=== PATIENT | male | born 1945 | race Caucasian/White ===

== ENCOUNTER 2016-05-24 14:00 | Emergency (ER) | payer OTHER, MEDICARE ==
[~2016-05-24] VITALS: Ht 175.3 cm; Wt 88.5 kg
[~2016-05-24 14:00] MED LIST: ATORVASTATIN CA20 MG PO; CIALIS5 MG PO; CLOPIDOGREL75 MG PO; CO-Q-10 200 MG-1 SGL PO; FISH OIL CONCEN1 SGL PO; PROTONIX 40MG T40 MG PO; VITAMIN C500 M3 PO
--- NOTE | 2016-05-24 16:06 | ED CARDIAC/CP/PALPITATIONS ---
History of Present Illness General Chief Complaint: Palpitations Stated Complaint: PALPITATIONS,SOB Source: patient, old records Exam Limitations: no limitations Vital Signs & Intake/Output Vital Signs & Intake/Output Vital Signs Date Time Temp Pulse Resp B/P Pulse O2 O2 Flow FiO2 Ox Delivery Rate 05/24 1657 98.6 78 18 148/87 96 Room Air 05/24 1412 97.9 83 20 151/92 99 Room Air Allergies Coded Allergies: NO KNOWN ALLERGIES (02/27/14) NKDA PER ANTIBIOTIC ORDER SHEET OF 02/27/14 ([facility]) Reconcile Medications Ascorbic Acid (Vitamin C) (Unknown Strength) TAB (Unknown Dose) PO DAILY SUPPLEMENT (Reported) Atorvastatin Calcium (Lipitor) 20 MG TAB 1 TAB PO DAILY CHOLESTEROL (Reported ) CLOPIDOGREL BISULFATE (Clopidogrel) 75 MG TAB 1 TAB PO DAILY BLOOD THINNER ( Reported) Coenzyme Q10/Vitamin E (Co-Q-10 200 MG-1 Iu) (Unknown Strength) SGL (Unknown Dose) PO DAILY SUPPLEMENT (Reported) OMEGA-3 FATTY ACIDS (Fish Oil Concentrate) 1 SGL SGL 1 SGL PO DAILY SUPPLEMENT (Reported) Venlafaxine HCl (Venlafaxine HCl ER) (Unknown Strength) CAP.ER.24H (Unknown Dose) UNKNOWN (Reported) Triage Note: PALPITATIONS 3-4 WEEKS AGO SO HE WENT TO HIS PMD WHO STOPPED PROTONIX. STATES IT CALMED DOWN BUT STARTED AGAIN SO HE WAS PUT ON A MONITOR WHICH HASN'T BEEN READ YET. STATES TODAY IT WAS SO BAD HE COULDN'T WALK Triage Nurses Notes Reviewed? yes Onset: Gradual Duration: week(s): (4), intermittent Timing: recent history Quality/Severity: mild, moderate Radiation: no radiation Activities at Onset: none Prior Chest Pain/Card Workup: recent holter monitor Nitro Today/Relief: no nitro taken today Aspirin Today: no aspirin today Associated Symptoms: shortness of breath HPI: This is a 71-year-old male with history of CVA currently on Plavix presents to emergency room complaining of intermittent episodes of bradycardia and feeling flushed in his face for the past 1 month. The patient states that the reason he came in today is because he had an episode that lasted for 30 seconds which is the longest it has ever occurred. His states she has witnessed several of these episodes and he becomes red in the face when the episodes occur. He denies tachycardia, or palpitations and states it feels as though his heart slows down. He reports to associated feeling short of breath during the episode. There is been no recent cough fever chills and he denies any symptoms at this time. The episodes come on randomly and there is no association with exertion. The patient was seen by his primary care physician on May 02 at which time he had an unremarkable workup performed and wore a 24 hour Holter monitor 4 days ago however does not know the results.no Family history of irregular heartbeat. There is no associated dizziness lightheadedness. The patient is seen by communications and signals supervisor Dr. VEGA whom he saw once last year for a well check (BARRY FRANCES) Past History Travel History Traveled to [place] past 21 day No Medical History Any Pertinent Medical History? 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 No (BARRY FRANCES) Review of Systems Review of Systems Constitutional: Reports: see HPI. All Other Systems: Reviewed and Negative Comments Review of systems: See HPI, All other systems negative. Constitutional, no chills no fever, no malaise HEENT: No visual changes no sore throat no congestion Cardiovascular: No chest pain , palpitation Skin, no rashes, no change in skin Respiratory: No dyspnea no cough no sputum GI: No nausea no vomiting, no diarrhea, no bloating/constipation : No dysuria No hematuria Muscle skeletal: No joint pain, no joint swelling, no back pain, no neck pain, Neurologic: No numbness no headache Psych: No stress Heme/endocrine: No bruising no bleeding immuno: no lymphadenopathy (BARRY FRANCES) Physical Exam Physical Exam General Appearance: well developed/nourished, alert, awake Cardiovascular: regular rate/rhythm Comments: Well-developed well-nourished person in no acute distress HEENT: Normal EENT exam; PERRL, EOMI. HEAD is atraumatic. moist mucous membranes. Neck: Supple, no lymphadenopathy, normal range of motion, NO palpable thyromegaly Back: Nontender, no CVA tenderness. Full range of motion Cardiovascular: Regular rate and rhythms no murmurs rubs Respiratory: Chest nontender.There were no bony deformities, no asymmetry. No respiratory distress. Patient speaking in full complete sentences. Breath sounds clear to auscultation bilaterally: NO W/R/R Abdomen: Soft, nontender nondistended, no appreciable organomegaly. Normal bowel sounds. No rebound/guarding, Extremity: No edema, full range of motion of extremities Neuro: Alert oriented x3, motor sensory normal, There were no obvious focal neurologic abnormalities. Skin: No appreciable rash on exposed skin, skin is warm and dry. Psych: Mood and affect is normal, memory and judgment is normal. Core Measures ACS in differential dx? No Severe Sepsis Present: No Septic Shock Present: No (ULYSSES GORDON,BARRY) Progress Differential Diagnosis: AMI, aortic dissection, atrial fibrillation, CHF/pulm edema, costochondritis, hyperventilation, musculoskeletal pain, myocarditis, pancreatitis, pericarditis, pneumonia, pneumothorax, PSVT, pulmonary embolism, PVCs/PACs, unstable angina, V-fib/V-Tach Plan of Care: Orders Procedure Date/time Status THYROID STIMULATING HORMONE 05/24 1558 Complete TROPONIN LEVEL 05/24 1558 Complete COMPREHENSIVE METABOLIC PANEL 05/24 1558 Complete CBC WITHOUT DIFFERENTIAL 05/24 1558 Complete EKG 05/24 1400 Active Laboratory Tests 05/24/16 1615: Anion Gap 8, Estimated GFR > 60, BUN/Creatinine Ratio 18.6, Glucose 94, Calcium 9.9, Total Bilirubin 0.9, AST 25, ALT 38, Alkaline Phosphatase 76, Troponin I < 0.01, Total Protein 7.5, Albumin 4.4, Globulin 3.1, Albumin/Globulin Ratio 1.4, TSH 2.270, CBC w Diff NO MAN DIFF REQ, RBC 5.38, MCV 90.3, MCH 29.8, RDW 13.7, MPV 8.7, Gran % 73.7, Lymphocytes % 17.4 L, Monocytes % 7.3, Eosinophils % 1.0, Basophils % 0.6, Absolute Granulocytes 5.5, Absolute Lymphocytes 1.3, Absolute Monocytes 0.5, Absolute Eosinophils 0.1, Absolute Basophils 0, PUBS MCHC 33.0 Labs ordered patient denies any symptoms at this time. Case discussed with Dr. Thompson Repeat evaluation patient states that he has not had any further episodes of his symptoms while here, he is been normal sinus on the monitor without arrhythmia. I discussed with him need for close follow-up with his communications and signals supervisor Dr. VEGA this week, to return if the symptoms persist or redevelop or he has any other concerns answered all his questions he feels comfortable this plan (BARRY FRANCES) Diagnostic Imaging: Viewed by Me: Radiology Read. Discussed w/RAD: Radiology Read. Radiology Impression: PATIENT: JES RIVAS PRESENT AGE: 71 PATIENT ACCOUNT NO: [id number] : 47 LOCATION: [facility] ORDERING PHYSICIAN: BARRY GORDON SERVICE DATE: 05/24/16 EXAM TYPE: RAD - XRY-PORTABLE CHEST XRAY EXAMINATION: XR PORTABLE CHEST CLINICAL INFORMATION: Palpitations. COMPARISON: The 07/08/2015 TECHNIQUE: Portable AP view of the chest was obtained. FINDINGS: No significant abnormality is noted involving the heart, lungs, mediastinum, bony thorax or soft tissues. IMPRESSION : No active chest disease. DICTATED BY: ARUN BOO MD DATE/TIME DICTATED:1653 DISH CARRIER:TIP DATE/TIME TRANSCRIBED:05/24/161653 CONFIDENTIAL, DO NOT COPY WITHOUT APPROPRIATE AUTHORIZATION. <Electronically signed in Other Vendor System> SIGNED BY: ARUN BOO MD 05/24/161657 Initial ED EKG: normal intervals, normal p-waves, normal QRS complex, normal sinus rhythm (80) Prior EKG: unchanged (06/2015) Rhythm Strip: normal sinus rhythm (BARRY FRANCES) Departure Departure Time of Disposition: 1738 Disposition: HOME OR SELF CARE Condition: Stable Clinical Impression Primary Impression: Palpitations Referrals: SILVIA REBOLLAR,MICHELLE ASHLEY MD,DEON (PCP/Family) Additional Instructions: follow up with your pmd as well as communications and signals supervisor dr vega on Thursday, return with any concerns Departure Forms: Customer Survey General Discharge Information (BARRY FRANCES) PA/WATER SERVICE SUPERVISOR Co-Sign Statement Statement: ED Attending supervision documentation- [x] I saw and evaluated the patient. I have also reviewed all the pertinent lab results and diagnostic results. I agree with the findings and the plan of care as documented in the PA's/WATER SERVICE SUPERVISOR's documentation. [x] I have reviewed the ED Record and agree with the PA's/WATER SERVICE SUPERVISOR's documentation. [] Additions or exceptions (if any) to the PAs/WATER SERVICE SUPERVISOR's note and plan are summarized below: [] (LUCIA REBOLLAR,LEENA) Critical Care Note Critical Care Note Critical Care Time: non-applicable (BARRY FRANCES)
[2016-05-24 16:20] LABS: ABSOLUTE BASOPHIL COUNT 0 /CUMM (0.0-0.2); ABSOLUTE EOSINOPHIL COUNT 0.1 /CUMM (0.0-0.7); ABSOLUTE GRANULOCYTE CT 5.5 /CUMM (1.4-6.5); ABSOLUTE LYMPH COUNT 1.3 /CUMM (1.2-3.4); ABSOLUTE MONOCYTE COUNT 0.5 /CUMM (0.10-0.60); BASOPHIL % 0.6 % (0.0-2.0); GRANULOCYTE % 73.7 % (42.2-75.2); HEMATOCRIT 48.6 % (42-52); MEAN CORPUSCULAR HGB 29.8 PG (27.0-31.0); MEAN CORPUSCULAR VOLUME 90.3 FL (80.0-94.0); MEAN PLATELET VOLUME 8.7 FL (7.4-10.4); PLATELET COUNT 228 /CUMM (130-400); RBC DISTRIBUTION WIDTH 13.7 % (11.5-14.5); RED BLOOD CELL CT 5.38 /CUMM (4.70-6.10); WHITE BLOOD CELL COUNT 7.5 /CUMM (4.8-10.8)
[2016-05-24 16:57] VITALS: BP 148/87
--- NOTE | 2016-05-24 16:58 | RADIOLOGY REPORT ---
EXAMINATION: XR PORTABLE CHEST CLINICAL INFORMATION: Palpitations. COMPARISON: The 07/08/2015 TECHNIQUE: Portable AP view of the chest was obtained. FINDINGS: No significant abnormality is noted involving the heart, lungs, mediastinum, bony thorax or soft tissues. IMPRESSION: No active chest disease.
[2016-05-24] MEDS ORDERED: VENLAFAXINE HCL75 M1 (17:13)
== END 2016-05-24 17:39 ==
LOC: ERH 14:00
PROVIDERS: Physician Assistant Medical
DX: R00.2 Palpitations (principal)
CPT/HCPCS: 93005; 93010